=== PATIENT | female | born 1985 | race African-American/Black ===

== ENCOUNTER 2017-01-06 08:57 | Outpatient (CLI) | payer MEDICAID | END 2017-01-06 08:58 | disposition critical access hospital (66) | LOC: EMS 08:57 | PROVIDERS: ATTEND Surgery | DX: R45.851 Suicidal ideations (principal) | CPT/HCPCS: A0425; A0429 ==

== ENCOUNTER 2017-01-06 09:15 | Emergency (ER) | payer MEDICAID ==
[2017-01-06] MEDS ORDERED: OLANZapine 10 MG VIAL IM STA ×2 (09:25→17:59)
[2017-01-06] MEDS ORDERED: OLANZapine 10 MG VIAL IM ONE ×2 (09:28→18:09)
[2017-01-06] MEDS ORDERED: WATER FOR INJECTION,STERILE 10 ML ONE ×2 (09:30→18:19)
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
[2017-01-06 10:15] LABS: BASOPHILS # (AUTO) 0.1 10^3/uL (0.0-0.1); BASOPHILS % (AUTO) 1.2 %; EOSINOPHILS # (AUTO) 0.1 10^3/uL (0.0-0.7); EOSINOPHILS % (AUTO) 1.5 %; HCT - HEMATOCRIT 36.7 % (37.0-47.0); HGB - HEMOGLOBIN 11.6 g/dL (12.0-16.0); LYMPHOCYTES % (AUTO) 34.8 %; MEAN CORPUSCULAR HEMOGLOBIN 24.5 pg (27.0-31.0); MEAN CORPUSCULAR HGB CONC 31.6 g/dL (32.0-36.0); MEAN CORPUSCULAR VOLUME 77.4 fL (81.0-99.0); MEAN PLATELET VOLUME 7.3 fL (7.9-10.8); MONOCYTES # (AUTO) 0.5 10^3/uL (0.0-1.0); MONOCYTES % (AUTO) 5.6 %; NEUTROPHILS % (AUTO) 56.9 %; RED BLOOD COUNT 4.75 10^6/uL (4.20-5.40); RED CELL DISTRIBUTION WIDTH 16.8 % (12.0-15.0); UNCORRECTED WHITE BLOOD COUNT 8.7 x10^3/uL; WHITE BLOOD COUNT 8.7 x10^3/uL (4.8-10.8)
[2017-01-06 10:31] LABS: ALBUMIN/GLOBULIN RATIO 0.9 (1.0-2.2); BUN - BLOOD UREA NITROGEN 7 mg/dL (6-20); CALCIUM 9.1 mg/dL (8.5-10.3); CARBON DIOXIDE - CO2 28 mmol/L (21-32); CHLORIDE 100 mmol/L (101-111); CREATININE 0.7 mg/dL (0.4-1.0); GFR - MDRD 118 (>89); GLUCOSE 116 mg/dL (70-100); LIPASE 44 U/L (22-51); SALICYLATE < 6.0 mg/dL; SODIUM 137 mmol/L (135-145); TOTAL PROTEIN 8.9 g/dL (6.7-8.2)
[2017-01-06 11:14] LABS: ACETAMINOPHEN < 10 ug/mL (10-30)
[2017-01-06] MEDS: POTASSIUM CHLORIDE 20 MEQ TABLET PO STA ×2 (11:58→17:03)
[2017-01-06] MEDS ORDERED: POTASSIUM CHLORIDE 20 MEQ TABLET PO ONE (17:04)
[2017-01-06] MEDS ORDERED: LORazepam 2 MG/ML SYRINGE IVP STA (17:59)
[2017-01-06] MEDS ORDERED: LORazepam 2 MG/ML SYRINGE ONE (18:09)
[2017-01-06] MEDS ORDERED: LORazepam 2 MG/ML SYRINGE IM STA (18:34)
[2017-01-06 19:19] LABS: PH,URINE 5.5 PH (5.0-7.5)
[2017-01-06 19:21] LABS: UA w/ MICROSCOPIC CHARGE YES
[2017-01-06 19:27] LABS: BILIRUBIN,URINE NEGATIVE (NEGATIVE)
[2017-01-06 19:33] LABS: UR CULTURE IF IND NOT INDICATED; WBC,URINE >25 /HPF (0-5)
[2017-01-06 22:03] VITALS: BP 144/91
== END 2017-01-06 22:14 ==
LOC: EDUNIT# → ED 09:15
DX: F31.9 Bipolar disorder, unspecified (principal); T50.906A Underdosing of unspecified drugs, medicaments and biological substances, initial encounter; Z91.128 Patient's intentional underdosing of medication regimen for other reason
CPT/HCPCS: 36415; 80053; 80306; 80307; 80320; 80329; 81001; 83690; 84132; 84703; 85025; 87086; 96372; 99284; 99285; A9270; J2060; 81003

== ENCOUNTER 2017-01-30 11:46 | Outpatient (CLI) | payer MEDICAID | END 2017-01-30 11:47 | disposition critical access hospital (66) | LOC: EMS 11:46 | PROVIDERS: ATTEND Surgery | DX: R41.0 Disorientation, unspecified (principal) ==

== ENCOUNTER 2017-01-30 12:04 | Emergency (ER) | payer MEDICAID ==
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
[2017-01-30] MEDS ORDERED: OLANZapine 10 MG VIAL IM STA ×3 (12:58→22:38)
[2017-01-30] MEDS ORDERED: WATER FOR INJECTION,STERILE 10 ML ONE ×3 (13:16→22:47)
[2017-01-30] MEDS ORDERED: OLANZapine 10 MG VIAL IM ONE ×3 (13:16→22:47)
[2017-01-30 16:05] LABS: ALBUMIN/GLOBULIN RATIO 0.7 (1.0-2.2); BILIRUBIN,TOTAL 0.4 mg/dL (0.2-1.0); BUN - BLOOD UREA NITROGEN 6 mg/dL (6-20); CALCIUM 9.5 mg/dL (8.5-10.3); CARBON DIOXIDE - CO2 31 mmol/L (21-32); CHLORIDE 96 mmol/L (101-111); CREATININE 0.7 mg/dL (0.4-1.0); GFR - MDRD 118 (>89); GLUCOSE 96 mg/dL (70-100); LIPASE 45 U/L (22-51); POTASSIUM 3.2 mmol/L (3.5-5.0); SALICYLATE < 6.0 mg/dL; SODIUM 140 mmol/L (135-145); TOTAL PROTEIN 8.7 g/dL (6.7-8.2)
[2017-01-30 16:07] LABS: BASOPHILS # (AUTO) 0.1 10^3/uL (0.0-0.1); BASOPHILS % (AUTO) 0.8 %; EOSINOPHILS # (AUTO) 0.3 10^3/uL (0.0-0.7); EOSINOPHILS % (AUTO) 1.9 %; HCT - HEMATOCRIT 33.5 % (37.0-47.0); HGB - HEMOGLOBIN 10.5 g/dL (12.0-16.0); LYMPHOCYTES # (AUTO) 4.2 10^3/uL (1.5-3.5); LYMPHOCYTES % (AUTO) 31.6 %; MEAN CORPUSCULAR HEMOGLOBIN 24.5 pg (27.0-31.0); MEAN CORPUSCULAR HGB CONC 31.4 g/dL (32.0-36.0); MEAN CORPUSCULAR VOLUME 78.2 fL (81.0-99.0); MEAN PLATELET VOLUME 7.1 fL (7.9-10.8); MONOCYTES # (AUTO) 0.7 10^3/uL (0.0-1.0); MONOCYTES % (AUTO) 5.7 %; NEUTROPHILS # (AUTO) 7.9 10^3/uL (1.5-6.6); RED BLOOD COUNT 4.28 10^6/uL (4.20-5.40); RED CELL DISTRIBUTION WIDTH 18.1 % (12.0-15.0); UNCORRECTED WHITE BLOOD COUNT 13.2 x10^3/uL; WHITE BLOOD COUNT 13.2 x10^3/uL (4.8-10.8)
[2017-01-30 16:12] LABS: ACETAMINOPHEN < 10 ug/mL (10-30)
[2017-01-30] MEDS ORDERED: POTASSIUM CHLORIDE 20 MEQ TABLET PO STA (17:17)
[2017-01-30] MEDS ORDERED: POTASSIUM CHLORIDE 20 MEQ TABLET PO ONE (17:59)
[2017-01-30] MEDS ORDERED: LORazepam 2 MG/ML SYRINGE IM STA (18:20)
[2017-01-30] MEDS ORDERED: LORazepam 2 MG/ML SYRINGE ONE (18:35)
[2017-01-30] MEDS ORDERED: POTASSIUM BICARB 25 MEQ TABLET PO ONE (19:40)
[2017-01-30 19:55] LABS: BILIRUBIN,URINE NEGATIVE (NEGATIVE)
[2017-01-30 19:56] LABS: HCG UR QUAL NEGATIVE; UA CHARGE (STRIP ONLY) YES; UR CULTURE IF IND NOT INDICATED
[2017-01-30] MEDS ORDERED: POTASSIUM BICARB 25 MEQ TABLET PO STA ×2 (20:02→20:03)
[2017-01-30] MEDS ORDERED: LORazepam 0.5 MG TABLET PO STA (22:08)
[2017-01-30] MEDS ORDERED: LORazepam 0.5 MG TABLET ONE (22:33)
[2017-01-31 01:23] VITALS: BP 122/81
== END 2017-01-31 00:20 ==
LOC: EDUNIT# → ED 12:04
DX: F29 Unspecified psychosis not due to a substance or known physiological condition (principal); F31.9 Bipolar disorder, unspecified; D64.9 Anemia, unspecified; E87.6 Hypokalemia
CPT/HCPCS: 36415; 80053; 80306; 80307; 80320; 80329; 81003; 81025; 83690; 84132; 84443; 85025; 96372; 99285; A9270; J2060; 81001; 87086

== ENCOUNTER 2017-01-31 00:17 | Outpatient (CLI) | payer MEDICAID | END 2017-01-31 00:18 | disposition home or self-care (01) | LOC: EMS 00:17 | PROVIDERS: ATTEND Surgery | DX: F29 Unspecified psychosis not due to a substance or known physiological condition (principal); Z78.1 Physical restraint status | CPT/HCPCS: A0425; A0428 ==

== ENCOUNTER 2017-07-13 08:10 | Outpatient (CLI) | payer MEDICAID | END 2017-07-13 08:11 | disposition critical access hospital (66) | LOC: EMS 08:10 | PROVIDERS: ATTEND Surgery | DX: F91.9 Conduct disorder, unspecified (principal) | CPT/HCPCS: A0425; A0429 ==

== ENCOUNTER 2017-07-13 08:27 | Emergency (ER) | payer MEDICAID ==
--- NOTE | 2017-07-13 09:02 | ED Physician Documentation ---
PD HPI MHE - Stated complaint Stated Complaint: MHE - Chief complaint Chief Complaint: MHE - History obtained from History obtained from: Patient, EMS - History of Present Illness Primary symptom: Manic (She was being disruptive trying to get on the bus and uncooperative and not really making sense in her sentence structure and interactions. She is then started stripping her clothes off and walking around naked. EMS was called. She was slightly combative en route and required restraints. She had very tangential thought process and poor verbal interaction. This is consistent with prior manic episode she has had with last hospitalization January 2017.), Off meds Timing - onset: Today, Unknown (not sure how long this has been building.) Contributing factors: Off meds (reportedly from EMS). No: Substance abuse - ETOH, Substance abuse - drugs Review of Systems Unable to obtain: Confused, Other (not really answering questions directly.) Constitutional: denies: Fever Respiratory: denies: Cough GI: denies: Vomiting, Diarrhea PD PAST MEDICAL HISTORY - Past Medical History Cardiovascular: None Respiratory: None Neuro: None Endocrine/Autoimmune: None GI: None FORESTRY INSTRUCTOR: None : None HEENT: None Psych: Bipolar disorder, Other Musculoskeletal: None Derm: None - Past Surgical History Past Surgical History: No - Present Medications Home Medications: Ambulatory Orders Medication Instructions Recorded Confirmed OLANZapine [Olanzapine] 1 mg PO DAILY 08/07/14 01/06/17 - Allergies Allergies/Adverse Reactions: Allergies Allergy/AdvReac Type Severity Reaction Status Date / Time No Known Drug Allergies Allergy Verified 01/06/17 11:05 - Social History Does the pt smoke?: No Smoking Status: Never smoker Does the pt drink ETOH?: Yes Does the pt have substance abuse?: No - Immunizations Immunizations are current?: No - POLST Patient has POLST: No PD ED PE NORMAL - Vitals Vital signs reviewed: Yes - General General: No acute distress, Well developed/nourished, Other (She is able to state her name. She could not tell us the month. She thought she was at home when asked where she is. She does not seem to be really in connection with her surroundings. She has a somewhat blank stare and seems confused. 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 2-12 intact, No motor deficit, No sensory deficit, Normal speech Eye Opening: Spontaneous Motor: Obeys Commands Verbal: Confused GCS Score: 14 - Psych Psych: Normal mood Results - Vitals Vitals: Vital Signs - 24 hr 07/13/17 10:33 Temperature 36.3 C L Heart Rate 88 Respiratory 15 Rate Blood Pressure 156/101 H O2 Saturation 97 Oxygen O2 Source Room air - Labs Labs: Laboratory Tests 07/13/17 07/13/17 07/13/17 10:59 10:59 11:03 WBC 11.6 H RBC 4.70 Hgb 11.6 L Hct 37.4 MCV 79.5 L MCH 24.6 L MCHC 31.0 L RDW 17.8 H Plt Count 433 MPV 7.2 L Neut # 7.4 H Lymph # 3.5 [place] # 0.6 Eos # 0.1 Baso # 0.1 Absolute Nucleated RBC 0.00 Nucleated RBC % 0.0 Sodium 137 Potassium 4.4 Chloride 101 Carbon Dioxide 24 Anion Gap 12.0 BUN 7 Creatinine 0.7 Estimated GFR (MDRD) 118 Glucose 127 H Calcium 9.0 Total Bilirubin 0.4 AST 39 ALT 25 Alkaline Phosphatase 86 Total Protein 8.6 H Albumin 3.9 Globulin 4.7 H Albumin/Globulin Ratio 0.8 L Lipase 14 L Urine Color Urine Clarity Urine pH Ur Specific [place] Urine Protein Urine Glucose (UA) Urine Ketones Urine Occult Blood Urine Nitrite Urine Bilirubin Urine Urobilinogen Ur Leukocyte Esterase Ur Microscopic Review Urine Culture Comments Urine HCG, Qual Salicylates < 6.0 Urine Opiates Screen NEGATIVE Ur Oxycodone Screen NEGATIVE Urine Methadone Screen NEGATIVE Ur Propoxyphene Screen NEGATIVE Acetaminophen < 10 L Ur Barbiturates Screen NEGATIVE Ur Tricyclics Screen NEGATIVE Ur Phencyclidine Scrn NEGATIVE Ur Amphetamine Screen NEGATIVE U Methamphetamines Scrn NEGATIVE U Benzodiazepines Scrn NEGATIVE Urine Cocaine Screen NEGATIVE U Cannabinoids Screen NEGATIVE Ethyl Alcohol < 5.0 07/13/17 11:03 WBC RBC Hgb Hct MCV MCH MCHC RDW Plt Count MPV Neut # Lymph # [place] # Eos # Baso # Absolute Nucleated RBC Nucleated RBC % Sodium Potassium Chloride Carbon Dioxide Anion Gap BUN Creatinine Estimated GFR (MDRD) Glucose Calcium Total Bilirubin AST ALT Alkaline Phosphatase Total Protein Albumin Globulin Albumin/Globulin Ratio Lipase Urine Color YELLOW Urine Clarity CLEAR Urine pH 7.0 Ur Specific [place] 1.020 Urine Protein NEGATIVE Urine Glucose (UA) NEGATIVE Urine Ketones TRACE Urine Occult Blood NEGATIVE Urine Nitrite NEGATIVE Urine Bilirubin NEGATIVE Urine Urobilinogen 0.2 (NORMAL) Ur Leukocyte Esterase NEGATIVE Ur Microscopic Review NOT INDICATED Urine Culture Comments NOT INDICATED Urine HCG, Qual NEGATIVE Salicylates Urine Opiates Screen Ur Oxycodone Screen Urine Methadone Screen Ur Propoxyphene Screen Acetaminophen Ur Barbiturates Screen Ur Tricyclics Screen Ur Phencyclidine Scrn Ur Amphetamine Screen U Methamphetamines Scrn U Benzodiazepines Scrn Urine Cocaine Screen U Cannabinoids Screen Ethyl Alcohol PD MEDICAL DECISION MAKING - ED course Complexity details: reviewed results, re-evaluated patient (The patient was initially cooperative in that she would follow directions to stay in the room. She would not interact well in that she seemed to be staring off blankly and not answering well. When initially asked where she was she thought she was at home. After the months that she get a stat February. She was able to state her name. She her speech was clear and coherent and did not seem to be a delirium or somnolence. There is no signs of injury. This looks to be an exacerbation of her manic psychosis similar to other visits here. There is no history of drug use in the past nor currently in her U tox is negative. Her labs are normal. This appears to be psychiatric.), considered differential ( most likely exac of her bipolar with manic psychosis and reportedly off meds. Will check labs to ensure not druge related, though she has not had any history of drug use in the past and has had negative drug screens always. Will check labs for electrolytes. No fever and no report of infectious symptoms, but will check CBC and UA. Off meds so not likely toxic. She is not hving toxidrome symtpoms such as anticholinergic. ), d/w patient, d/w review consultant (UNIQUE and ADARSH)
[2017-07-13] MEDS ORDERED: OLANZapine 10 MG VIAL IM ONE (09:13)
[2017-07-13] MEDS ORDERED: OLANZapine 10 MG VIAL IM STA ×2 (10:02→12:08)
[2017-07-13] MEDS ORDERED: KETAMINE 500 MG/10 ML VIAL IM STA (10:02)
[2017-07-13 11:05] LABS: MUDS CUTOFF CONCENTRATIONS CUTOFF CONC BELOW:
[2017-07-13 11:09] LABS: BASOPHILS # (AUTO) 0.1 10^3/uL (0.0-0.1); BASOPHILS % (AUTO) 0.5 %; EOSINOPHILS # (AUTO) 0.1 10^3/uL (0.0-0.7); EOSINOPHILS % (AUTO) 0.9 %; HGB - HEMOGLOBIN 11.6 g/dL (12.0-16.0); LYMPHOCYTES # (AUTO) 3.5 10^3/uL (1.5-3.5); LYMPHOCYTES % (AUTO) 29.8 %; MEAN CORPUSCULAR HEMOGLOBIN 24.6 pg (27.0-31.0); MEAN CORPUSCULAR VOLUME 79.5 fL (81.0-99.0); MEAN PLATELET VOLUME 7.2 fL (7.9-10.8); MONOCYTES # (AUTO) 0.6 10^3/uL (0.0-1.0); MONOCYTES % (AUTO) 5.2 %; NEUTROPHILS # (AUTO) 7.4 10^3/uL (1.5-6.6); NEUTROPHILS % (AUTO) 63.6 %; PLT - PLATELET COUNT 433 10^3/uL (130-450); RED CELL DISTRIBUTION WIDTH 17.8 % (12.0-15.0); WHITE BLOOD COUNT 11.6 x10^3/uL (4.8-10.8)
[2017-07-13 11:19] LABS: BILIRUBIN,URINE NEGATIVE (NEGATIVE); GLUCOSE, URINE (UA) NEGATIVE (NEGATIVE); KETONES,URINE (UA) TRACE mg/dL (NEGATIVE); LEUKOCYTE ESTERASE, URINE NEGATIVE (NEGATIVE); NITRITE,URINE NEGATIVE (NEGATIVE); OCCULT BLOOD,URINE NEGATIVE (NEGATIVE); PROTEIN,URINE NEGATIVE (NEGATIVE); UROBILINOGEN,URINE 0.2 (NORMAL) E.U./dL (NORMAL)
[2017-07-13 11:20] LABS: CLARITY,URINE CLEAR (CLEAR)
[2017-07-13 11:21] LABS: HCG UR QUAL NEGATIVE
[2017-07-13 11:23] LABS: ALBUMIN 3.9 g/dL (3.2-5.5); ALBUMIN/GLOBULIN RATIO 0.8 (1.0-2.2); ALKALINE PHOSPHATASE 86 IU/L (42-121); ALT ALANINE AMINOTRANSFERASE 25 IU/L (10-60); AST ASPARTATE AMINOTRANSFERASE 39 IU/L (10-42); BILIRUBIN,TOTAL 0.4 mg/dL (0.2-1.0); BUN - BLOOD UREA NITROGEN 7 mg/dL (6-20); CARBON DIOXIDE - CO2 24 mmol/L (21-32); CHLORIDE 101 mmol/L (101-111); CREATININE 0.7 mg/dL (0.4-1.0); GFR - MDRD 118 (>89); GLUCOSE 127 mg/dL (70-100); LIPASE 14 U/L (22-51); SALICYLATE < 6.0 mg/dL; SODIUM 137 mmol/L (135-145); TOTAL PROTEIN 8.6 g/dL (6.7-8.2)
[2017-07-13 11:25] LABS: ACETAMINOPHEN < 10 ug/mL (10-30)
[2017-07-13 11:27] LABS: AMPHETAMINE SCREEN,URINE NEGATIVE (NEGATIVE); BENZODIAZEPINES SCREEN, URINE NEGATIVE (NEGATIVE); COCAINE SCREEN URINE NEGATIVE (NEGATIVE); METHADONE SCREEN, URINE NEGATIVE (NEGATIVE); METHAMPHETAMINES SCREEN, URINE NEGATIVE (NEGATIVE); OPIATE SCREEN, URINE NEGATIVE (NEGATIVE); OXYCODONE SCREEN, URINE NEGATIVE (NEGATIVE); PROPOXYPHENE SCREEN, URINE NEGATIVE (NEGATIVE); TRICYCLIC ANTIDEPRESSANT,URINE NEGATIVE (NEGATIVE)
[2017-07-13 13:17] VITALS: BP 124/75
[2017-07-13] MEDS ORDERED: HALOPERIDOL 5 MG/ML VIAL IM STA (16:19)
== END 2017-07-13 16:43 ==
LOC: EDUNIT# → ED 08:27
DX: F31.2 Bipolar disorder, current episode manic severe with psychotic features (principal)
CPT/HCPCS: 36415; 51701; 80053; 80306; 80307; 80320; 80329; 81001; 81003; 81025; 83690; 85025; 87086; 96372; 99284; 99285

== ENCOUNTER 2017-07-13 16:40 | Outpatient (CLI) | payer MEDICAID | END 2017-07-13 16:41 | disposition short-term general hospital (02) | LOC: EMS 16:40 | PROVIDERS: ATTEND Surgery | DX: F23 Brief psychotic disorder (principal) | CPT/HCPCS: A0425; A0426 ==

== ENCOUNTER 2017-08-27 16:43 | Outpatient (CLI) | payer MEDICAID | END 2017-08-27 16:44 | disposition critical access hospital (66) | LOC: EMS 16:43 | PROVIDERS: ATTEND Surgery | DX: R45.89 Other symptoms and signs involving emotional state (principal) | CPT/HCPCS: A0425; A0429 ==

== ENCOUNTER 2017-08-27 17:07 | Emergency (ER) | payer MEDICAID ==
[2017-08-27] MEDS ORDERED: OLANZapine 10 MG VIAL IM STA (17:33)
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
[2017-08-27] MEDS ORDERED: KETAMINE 500 MG/10 ML VIAL IM STA ×2 (18:56→20:49)
[2017-08-27 20:27] LABS: BASOPHILS # (AUTO) 0.1 10^3/uL (0.0-0.1); BASOPHILS % (AUTO) 0.7 %; EOSINOPHILS # (AUTO) 0.1 10^3/uL (0.0-0.7); EOSINOPHILS % (AUTO) 0.7 %; HGB - HEMOGLOBIN 9.7 g/dL (12.0-16.0); LYMPHOCYTES # (AUTO) 3.3 10^3/uL (1.5-3.5); LYMPHOCYTES % (AUTO) 24.2 %; MEAN CORPUSCULAR HEMOGLOBIN 24.6 pg (27.0-31.0); MEAN CORPUSCULAR HGB CONC 31.2 g/dL (32.0-36.0); MEAN CORPUSCULAR VOLUME 78.8 fL (81.0-99.0); MEAN PLATELET VOLUME 7.2 fL (7.9-10.8); MONOCYTES # (AUTO) 0.7 10^3/uL (0.0-1.0); MONOCYTES % (AUTO) 4.9 %; NEUTROPHILS # (AUTO) 9.6 10^3/uL (1.5-6.6); NEUTROPHILS % (AUTO) 69.5 %; PLT - PLATELET COUNT 443 10^3/uL (130-450); RED BLOOD COUNT 3.93 10^6/uL (4.20-5.40); RED CELL DISTRIBUTION WIDTH 17.8 % (12.0-15.0); WHITE BLOOD COUNT 13.8 x10^3/uL (4.8-10.8)
[2017-08-27 20:39] LABS: ACETAMINOPHEN < 10 ug/mL (10-30); ALBUMIN 3.9 g/dL (3.2-5.5); ALBUMIN/GLOBULIN RATIO 0.8 (1.0-2.2); ALKALINE PHOSPHATASE 78 IU/L (42-121); ALT ALANINE AMINOTRANSFERASE 17 IU/L (10-60); AST ASPARTATE AMINOTRANSFERASE 33 IU/L (10-42); BILIRUBIN,TOTAL 0.7 mg/dL (0.2-1.0); BUN - BLOOD UREA NITROGEN 8 mg/dL (6-20); CALCIUM 8.9 mg/dL (8.5-10.3); CARBON DIOXIDE - CO2 26 mmol/L (21-32); CHLORIDE 103 mmol/L (101-111); CREATININE 0.7 mg/dL (0.4-1.0); GFR - MDRD 118 (>89); GLUCOSE 91 mg/dL (70-100); LIPASE 27 U/L (22-51); SALICYLATE < 6.0 mg/dL; SODIUM 139 mmol/L (135-145); TOTAL PROTEIN 8.5 g/dL (6.7-8.2)
[2017-08-27 21:17] LABS: MUDS CUTOFF CONCENTRATIONS CUTOFF CONC BELOW:
[2017-08-27 21:21] LABS: BILIRUBIN,URINE NEGATIVE (NEGATIVE); GLUCOSE, URINE (UA) NEGATIVE (NEGATIVE); KETONES,URINE (UA) 15 mg/dL (NEGATIVE); LEUKOCYTE ESTERASE, URINE NEGATIVE (NEGATIVE); NITRITE,URINE NEGATIVE (NEGATIVE); OCCULT BLOOD,URINE TRACE-INTA (NEGATIVE); PH,URINE 6.5 PH (5.0-7.5); PROTEIN,URINE NEGATIVE (NEGATIVE); UROBILINOGEN,URINE 0.2 (NORMAL) E.U./dL (NORMAL)
[2017-08-27 21:23] LABS: CLARITY,URINE CLEAR (CLEAR)
[2017-08-27 21:32] LABS: AMPHETAMINE SCREEN,URINE NEGATIVE (NEGATIVE); BENZODIAZEPINES SCREEN, URINE NEGATIVE (NEGATIVE); COCAINE SCREEN URINE NEGATIVE (NEGATIVE); METHADONE SCREEN, URINE NEGATIVE (NEGATIVE); METHAMPHETAMINES SCREEN, URINE NEGATIVE (NEGATIVE); OPIATE SCREEN, URINE NEGATIVE (NEGATIVE); OXYCODONE SCREEN, URINE NEGATIVE (NEGATIVE); PROPOXYPHENE SCREEN, URINE NEGATIVE (NEGATIVE); TRICYCLIC ANTIDEPRESSANT,URINE NEGATIVE (NEGATIVE)
[2017-08-28 02:00] LABS: HCG UR QUAL NEGATIVE
[2017-08-28] MEDS ORDERED: HALOPERIDOL 5 MG/ML VIAL IM STA ×2 (04:02→07:33)
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
[2017-08-28] MEDS ORDERED: POTASSIUM BICARB 25 MEQ TABLET PO STA (05:02)
[2017-08-28] MEDS ORDERED: POTASSIUM CHLOR 10 MEQ/100 ML 10 MEQ/100 ML BAG IV ONE ×2 (05:15)
[2017-08-28] MEDS ORDERED: LORazepam 0.5 MG TABLET PO STA (10:19)
[2017-08-28] MEDS ORDERED: LORazepam 2 MG/ML VIAL IVP STA (10:33)
[2017-08-28] MEDS ORDERED: OLANZapine 10 MG VIAL IM STA (12:56)
[2017-08-28] MEDS ORDERED: OLANZapine 10 MG VIAL IM ONE (13:07)
[2017-08-28] MEDS ORDERED: WATER FOR INJECTION,STERILE 10 ML ONE (13:07)
[2017-08-28 13:33] VITALS: BP 126/71
--- NOTE | 2017-08-28 19:36 | ED Physician Documentation ---
ED Addendum - Addendum Addendum: At change of shift the patient's care was signed over to me pending transport to psychiatric facility in [place]. Repeat potassium came back in the normal range at 3.8. The patient's agitation required that she continued to be maintained in restraints. She was also given additional sedative medication, including Haldol 5 mg IM, and lorazepam 0.5 mg IV. At the time of transfer her blood pressure is 126/71, with a pulse of 96. 08/28/17 19:34 08/28/17 19:35 08/28/17 19:36
--- NOTE | 2017-09-17 07:47 | ED Physician Documentation ---
ED Addendum - Addendum Addendum: This addendum is to report that on August 28, 2017, the patient was transported to [facility] in [place] by S ambulance. Transfer forms were completed. 09/17/17 07:46
== END 2017-08-28 13:33 ==
LOC: EDUNIT# → ED 17:07
DX: F29 Unspecified psychosis not due to a substance or known physiological condition (principal); F31.9 Bipolar disorder, unspecified; Z78.1 Physical restraint status
CPT/HCPCS: 36415; 51701; 80053; 80306; 80307; 80320; 80329; 81003; 81025; 83690; 84132; 85025; 96365; 96366; 96372; 96375; 99284; 99285; A9270; J2060; 81001; 87086

== ENCOUNTER 2017-11-18 14:12 | Outpatient (CLI) | payer MEDICAID | END 2017-11-18 14:13 | disposition critical access hospital (66) | LOC: EMS 14:12 | PROVIDERS: ATTEND Surgery | DX: T43.592A Poisoning by other antipsychotics and neuroleptics, intentional self-harm, initial encounter (principal) | CPT/HCPCS: A0425; A0429; A0999 ==

== ENCOUNTER 2017-11-18 14:30 | Emergency (ER) | payer MEDICAID ==
--- NOTE | 2017-11-18 14:40 | ED Physician Documentation ---
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 pt states thta yes she took other meds - does not know what, says they are in storage, states yes she also drank alcohol specifically listerine, and says "it doesnt really matter" when asked if she used illicit drugs she states she fell yesterday and hurt her heart she states she has had fever cough NVD but afebrile and no coughing or vomiting upon arrival BIBA in restraints 2/2 agitation Review of Systems Unable to obtain: Other (panpositive ROS per pt - she answers yes to everything) PD PAST MEDICAL HISTORY - Past Medical History Cardiovascular: None Respiratory: None Endocrine/Autoimmune: None GI: None 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 : None HEENT: None Psych: Bipolar disorder, Other Musculoskeletal: None Derm: None - Past Surgical History Past Surgical History: No - Present Medications Home Medications: Ambulatory Orders Medication Instructions Recorded Confirmed OLANZapine [Olanzapine] 5 mg PO DAILY 08/07/14 01/06/17 - Allergies Allergies/Adverse Reactions: Allergies Allergy/AdvReac Type Severity Reaction Status Date / Time No Known Drug Allergies Allergy Verified 01/06/17 11:05 - Social History Does the pt smoke?: No Smoking Status: Never smoker Does the pt drink ETOH?: Yes Does the pt have substance abuse?: No - Immunizations Immunizations are current?: No - POLST Patient has POLST: No PD ED PE NORMAL - Vitals Vital signs reviewed: Yes - General General: Other (alert actually very cooperative and talkative ) - HEENT HEENT: PERRL - Neck Neck: Supple, no meningeal sign - Cardiac Cardiac: RRR - Respiratory Respiratory: No respiratory distress, Clear bilaterally - Abdomen Abdomen: Soft, Non tender - Derm Derm: Normal color - Neuro Neuro: Other (alert oriented cooperative, moves all ext) Results - Vitals Vitals: Vital Signs - 24 hr 11/18/17 11/18/17 14:33 17:55 Temperature 35.9 C L Heart Rate 94 88 Respiratory 20 20 Rate Blood Pressure 154/87 H O2 Saturation 100 99 Oxygen O2 Source Room air - EKG (time done) 1456 Other comments: Other comments (sig motion agitation artifact but able to determine rate approx 120-130, sinus tach (P wave visible V2) narrow QRS, no prolonged QT) - Labs Labs: Laboratory Tests 11/18/17 11/18/17 11/18/17 16:55 16:55 16:55 WBC 13.1 H RBC 4.63 Hgb 11.1 L Hct 36.1 L MCV 77.9 L MCH 24.0 L MCHC 30.8 L RDW 17.9 H Plt Count 523 H MPV 6.6 L Neut # (Auto) 8.5 H Lymph # (Auto) 3.8 H [place] # (Auto) 0.7 Eos # (Auto) 0.1 Baso # (Auto) 0.1 Absolute Nucleated RBC 0.00 Nucleated RBC % 0.0 Sodium 139 Potassium 2.8 L Chloride 99 L Carbon Dioxide 30 Anion Gap 10.0 BUN 8 Creatinine 0.8 Estimated GFR (MDRD) 101 Glucose 103 H Calcium 9.0 HCG, Quant < 0.60 Urine Color Urine Clarity Urine pH Ur Specific [place] Urine Protein Urine Glucose (UA) Urine Ketones Urine Occult Blood Urine Nitrite Urine Bilirubin Urine Urobilinogen Ur Leukocyte Esterase Urine RBC Urine WBC Ur Squamous Epith Cells Urine Bacteria Urine Mucus Ur Microscopic Review Urine Culture Comments Salicylates < 6.0 Urine Opiates Screen Ur Oxycodone Screen Urine Methadone Screen Ur Propoxyphene Screen Acetaminophen < 10 L Ur Barbiturates Screen Ur Tricyclics Screen Ur Phencyclidine Scrn Ur Amphetamine Screen U Methamphetamines Scrn U Benzodiazepines Scrn Urine Cocaine Screen U Cannabinoids Screen Ethyl Alcohol < 5.0 11/18/17 11/18/17 16:55 16:59 WBC RBC Hgb Hct MCV MCH MCHC RDW Plt Count MPV Neut # (Auto) Lymph # (Auto) [place] # (Auto) Eos # (Auto) Baso # (Auto) Absolute Nucleated RBC Nucleated RBC % Sodium Potassium Chloride Carbon Dioxide Anion Gap BUN Creatinine Estimated GFR (MDRD) Glucose Calcium HCG, Quant Urine Color YELLOW Urine Clarity HAZY Urine pH 6.0 Ur Specific [place] >=1.030 H Urine Protein 30 H Urine Glucose (UA) NEGATIVE Urine Ketones >=80 H Urine Occult Blood MODERATE H Urine Nitrite NEGATIVE Urine Bilirubin NEGATIVE Urine Urobilinogen 0.2 (NORMAL) Ur Leukocyte Esterase NEGATIVE Urine RBC 11-25 H Urine WBC 6-10 H Ur Squamous Epith Cells FEW Squamous Urine Bacteria Few Urine Mucus Marked Strands Ur Microscopic Review INDICATED Urine Culture Comments INDICATED Salicylates Urine Opiates Screen NEGATIVE Ur Oxycodone Screen NEGATIVE Urine Methadone Screen NEGATIVE Ur Propoxyphene Screen NEGATIVE Acetaminophen Ur Barbiturates Screen NEGATIVE Ur Tricyclics Screen NEGATIVE Ur Phencyclidine Scrn NEGATIVE Ur Amphetamine Screen NEGATIVE U Methamphetamines Scrn NEGATIVE U Benzodiazepines Scrn NEGATIVE Urine Cocaine Screen NEGATIVE U Cannabinoids Screen NEGATIVE Ethyl Alcohol PD MEDICAL DECISION MAKING - ED course ED course: called poison control : possible adverse rxn include, prolonged QT, extrapyramidal effects, tachycardia, nystagmus, mydriasis, somnolence, ataxia, seizures, delerium, resp and PIGSKIN TRIMMER depression, hypotension recommend symptomatic tx as below: IVF for hypotension monitor airway if seizures benzos benztropine for dystonia EKG to eval for QT half life is 27 hr unlikely to develop toxicity if not showing above sx will need to be observed until asymptomatic (which will be difficult to determine with this pt who often exhibits AMS and agitation anyway) pt HR came down she is similar to all her prior visits - if anything a bit calmer than her usual she is not showwing signs of toxicity I looked at the bottle and it was dated July 2017 - so not completely sure she actually took a full 30 pills her anemia is not new her K was repleted I don't think she has a UTI - on her period, only few bacteria, neg leuk est and nitrates, is dehydrated and offered PO fluids tox EtOH and ASA APAP neg feel pt medically cleared she continued to be uncooperative and appears psychotic - talking about being in the [employer] room and singing Amazing Shraddha she is resisting our efforts to help her she is not able to cooperate or participate in medical decision making she is on a police invol hold no not appropriate for SW to voluntarily place called [facility] at 1800 and they will dispatch DCR Sabrina turned over to next shift pending DCR evaluation and placement - Sepsis Event Vital Signs: Vital Signs - 24 hr 11/18/17 11/18/17 14:33 17:55 Temperature 35.9 C L Heart Rate 94 88 Respiratory 20 20 Rate Blood Pressure 154/87 H O2 Saturation 100 99 Oxygen O2 Source Room air Departure - Departure Clinical Impression: Overdose Qualifiers: Encounter type: initial encounter Injury intent: intentional self-harm Qualified Code(s): T50.902A - Poisoning by unspecified drugs, medicaments and biological substances, intentional self-harm, initial encounter Psychosis Qualifiers: Psychosis type: unspecified psychosis type Qualified Code(s): F29 - Unspecified psychosis not due to a substance or known physiological condition
[2017-11-18 17:02] LABS: MUDS CUTOFF CONCENTRATIONS CUTOFF CONC BELOW:
[2017-11-18 17:03] LABS: BASOPHILS # (AUTO) 0.1 10^3/uL (0.0-0.1); BASOPHILS % (AUTO) 0.6 %; EOSINOPHILS # (AUTO) 0.1 10^3/uL (0.0-0.7); EOSINOPHILS % (AUTO) 0.8 %; HGB - HEMOGLOBIN 11.1 g/dL (12.0-16.0); LYMPHOCYTES # (AUTO) 3.8 10^3/uL (1.5-3.5); MEAN CORPUSCULAR HGB CONC 30.8 g/dL (32.0-36.0); MEAN CORPUSCULAR VOLUME 77.9 fL (81.0-99.0); MEAN PLATELET VOLUME 6.6 fL (7.9-10.8); MONOCYTES # (AUTO) 0.7 10^3/uL (0.0-1.0); MONOCYTES % (AUTO) 5.2 %; NEUTROPHILS # (AUTO) 8.5 10^3/uL (1.5-6.6); NEUTROPHILS % (AUTO) 64.4 %; PLT - PLATELET COUNT 523 10^3/uL (130-450); RED BLOOD COUNT 4.63 10^6/uL (4.20-5.40); RED CELL DISTRIBUTION WIDTH 17.9 % (12.0-15.0); WHITE BLOOD COUNT 13.1 x10^3/uL (4.8-10.8)
[2017-11-18 17:16] LABS: AMPHETAMINE SCREEN,URINE NEGATIVE (NEGATIVE); BENZODIAZEPINES SCREEN, URINE NEGATIVE (NEGATIVE); COCAINE SCREEN URINE NEGATIVE (NEGATIVE); METHADONE SCREEN, URINE NEGATIVE (NEGATIVE); METHAMPHETAMINES SCREEN, URINE NEGATIVE (NEGATIVE); OPIATE SCREEN, URINE NEGATIVE (NEGATIVE); OXYCODONE SCREEN, URINE NEGATIVE (NEGATIVE); PROPOXYPHENE SCREEN, URINE NEGATIVE (NEGATIVE); TRICYCLIC ANTIDEPRESSANT,URINE NEGATIVE (NEGATIVE)
[2017-11-18 17:18] LABS: BUN - BLOOD UREA NITROGEN 8 mg/dL (6-20); CARBON DIOXIDE - CO2 30 mmol/L (21-32); CHLORIDE 99 mmol/L (101-111); CREATININE 0.8 mg/dL (0.4-1.0); GFR - MDRD 101 (>89); GLUCOSE 103 mg/dL (70-100); SALICYLATE < 6.0 mg/dL; SODIUM 139 mmol/L (135-145)
[2017-11-18 17:32] LABS: GLUCOSE, URINE (UA) NEGATIVE (NEGATIVE); KETONES,URINE (UA) >=80 mg/dL (NEGATIVE); LEUKOCYTE ESTERASE, URINE NEGATIVE (NEGATIVE); NITRITE,URINE NEGATIVE (NEGATIVE); OCCULT BLOOD,URINE MODERATE (NEGATIVE); PROTEIN,URINE 30 mg/dL (NEGATIVE); UROBILINOGEN,URINE 0.2 (NORMAL) E.U./dL (NORMAL)
[2017-11-18 17:36] LABS: ACETAMINOPHEN < 10 ug/mL (10-30)
[2017-11-18 17:37] LABS: BILIRUBIN,URINE NEGATIVE (NEGATIVE); CLARITY,URINE HAZY (CLEAR); ICTOTEST,URINE NEGATIVE
[2017-11-18 17:49] LABS: BACTERIA,URINE Few /HPF (None Seen); MUCUS,URINE Marked Strands; SQUAMOUS EPITHELIAL CELL,UR FEW Squamous (<= Few)
[2017-11-18] MEDS ORDERED: POTASSIUM CHLORIDE 20 MEQ TABLET PO STA (17:54)
[2017-11-18] MEDS ORDERED: LORazepam 2 MG/ML VIAL IM STA (19:39)
[2017-11-18] MEDS ORDERED: HALOPERIDOL 5 MG/ML VIAL IM STA (19:39)
[2017-11-18] MEDS ORDERED: OLANZapine ODT 5 MG TABLET TL STA (22:31)
[2017-11-18] MEDS ORDERED: LORazepam 0.5 MG TABLET PO STA (22:31)
--- NOTE | 2017-11-18 22:33 | ED Physician Documentation ---
ED Addendum - Addendum Addendum: 11/18/17 22:33 Signed out to me by Dr. Billings, she was obviously exhibiting psychosis in the department here was medicated a few times. Seen by the [facility] and detained to [facility] under the care of Dr. Siegel, cobras were completed.
[2017-11-18 23:14] VITALS: BP 127/86
== END 2017-11-18 23:26 ==
LOC: EDUNIT# → ED 14:30
DX: T50.902A Poisoning by unspecified drugs, medicaments and biological substances, intentional self-harm, initial encounter (principal); F29 Unspecified psychosis not due to a substance or known physiological condition; R00.0 Tachycardia, unspecified; D64.9 Anemia, unspecified
CPT/HCPCS: 36415; 80048; 80306; 80307; 80320; 80329; 81001; 84702; 85025; 87086; 93005; 96372; 99285; A9270; J2060; 81003; 99284

== ENCOUNTER 2017-11-18 23:27 | Outpatient (CLI) | payer MEDICAID | END 2017-11-18 23:28 | LOC: EMS 23:27 | PROVIDERS: ATTEND Surgery | DX: T43.592A Poisoning by other antipsychotics and neuroleptics, intentional self-harm, initial encounter (principal) | CPT/HCPCS: A0425; A0428; A0999 ==

== ENCOUNTER 2017-12-28 21:14 | Outpatient (CLI) | payer MEDICAID | END 2017-12-28 21:15 | disposition critical access hospital (66) | LOC: EMS 21:14 | PROVIDERS: ATTEND Surgery | DX: F41.9 Anxiety disorder, unspecified (principal) | CPT/HCPCS: A0425; A0429 ==

== ENCOUNTER 2017-12-28 21:37 | Emergency (ER) | payer MEDICAID ==
[2017-12-28] MEDS ORDERED: LORazepam 0.5 MG TABLET PO STA (22:41)
--- NOTE | 2017-12-28 22:42 | ED Physician Documentation ---
History of Present Illness - Stated complaint Stated Complaint: ANXIETY - Chief complaint Chief Complaint: MHE - History obtained from History obtained from: Patient - Additonal information Additional information: 32-year-old female with a history of mental health issues presents the emergency department with complaints of feeling anxious this evening. The patient took her normal Zyprexa and is feeling better but still slightly anxious. The patient denies suicidal or homicidal ideations. The patient's requesting a dose of medication to help with her anxiety. The patient denies any acute medical complaints. Symptoms are described as mild. No specific triggering factors Review of Systems Constitutional: denies: Fever, Chills Eyes: denies: Discharge Ears: denies: Ear pain Nose: denies: Congestion Cardiac: denies: Chest pain / pressure GI: denies: Abdominal Pain Psychiatric: reports: Anxiety. denies: Suicidal, Homicidal PD PAST MEDICAL HISTORY - Past Medical History Cardiovascular: None Respiratory: None Endocrine/Autoimmune: None GI: None DIETICIAN: None : None HEENT: None Psych: Bipolar disorder, Other Musculoskeletal: None Derm: None - Past Surgical History Past Surgical History: No - Present Medications Home Medications: Ambulatory Orders Medication Instructions Recorded Confirmed OLANZapine [Olanzapine] 5 mg PO DAILY 08/07/14 01/06/17 - Allergies Allergies/Adverse Reactions: Allergies Allergy/AdvReac Type Severity Reaction Status Date / Time No Known Drug Allergies Allergy Verified 12/28/17 21:44 - Social History Does the pt smoke?: No Smoking Status: Never smoker Does the pt drink ETOH?: Yes Does the pt have substance abuse?: No - Immunizations Immunizations are current?: No - POLST Patient has POLST: No PD ED PE NORMAL - General General: Alert and oriented X 3, No acute distress - HEENT HEENT: Atraumatic, PERRL, EOMI - Neck Neck: Supple, no meningeal sign - Cardiac Cardiac: RRR - Respiratory Respiratory: No respiratory distress, Clear bilaterally - Derm Derm: Normal color - Neuro Neuro: Alert and oriented X 3, Normal speech PD ED PE EXPANDED - Psych Psych: Withdrawn, Anxious. No: Suicidal, Homicidal, Agitated, Combative Results - Vitals Vitals: Vital Signs - 24 hr 12/28/17 21:40 Temperature 36.6 C Heart Rate 97 Respiratory 14 Rate Blood Pressure 130/98 H O2 Saturation 97 Oxygen O2 Source Room air PD MEDICAL DECISION MAKING - ED course ED course: The patient has no acute medical complaint and is denying suicidal homicidal ideations. The patient will be given 1 dose of Ativan in the emergency department to help improve her anxiety. The patient is scheduled to follow-up with her advocate tomorrow. I advised following up with primary care. Presently the patient appears appropriate for discharge and on patient management. I discussed warning signs and recommended returning to the emergency department immediately for any worsening or any concerns. - Sepsis Event Vital Signs: Vital Signs - 24 hr 12/28/17 21:40 Temperature 36.6 C Heart Rate 97 Respiratory 14 Rate Blood Pressure 130/98 H O2 Saturation 97 Oxygen O2 Source Room air Departure - Departure Disposition: Home, Self Care Clinical Impression: Anxiety Condition: Good Instructions: ED Anxiety Reaction Ch Follow-Up: Tadeo Rainey MD [Primary Care Provider] - Within 3 Days Comments: Please return to the ER for worsening symptoms or any concerns
[2017-12-28 23:15] VITALS: BP 140/74
== END 2017-12-28 23:16 | disposition home or self-care (01) ==
LOC: EDUNIT# → ED 21:37
DX: F41.9 Anxiety disorder, unspecified (principal); Z59.0 Homelessness
CPT/HCPCS: 99283; A9270

== ENCOUNTER 2017-12-30 15:35 | Emergency (ER) | payer MEDICAID ==
--- NOTE | 2017-12-30 15:43 | ED Physician Documentation ---
PD HPI MHE - Stated complaint Stated Complaint: EVAL - Chief complaint Chief Complaint: MHE - History obtained from History obtained from: Patient - History of Present Illness Primary symptom: Psychosis (Brought in [facility] ordered mental health evaluation. She was found wandering the streets yesterday without pants on. She was released on personal recognizance but pending the mental health evaluation. Patient is nonsensical. When asked her how I can help her all she says is [employer]. She makes it clear she needs to get [employer] to get diapers. 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 : None HEENT: None Psych: Bipolar disorder, Other Musculoskeletal: None Derm: None - Past Surgical History Past Surgical History: No - Present Medications Home Medications: Ambulatory Orders Medication Instructions Recorded Confirmed OLANZapine [Olanzapine] 5 mg PO DAILY 08/07/14 01/06/17 - Allergies Allergies/Adverse Reactions: Allergies Allergy/AdvReac Type Severity Reaction Status Date / Time No Known Drug Allergies Allergy Verified 12/30/17 15:38 - Social History Does the pt smoke?: No Smoking Status: Never smoker Does the pt drink ETOH?: Yes Does the pt have substance abuse?: No - Immunizations Immunizations are current?: No - POLST Patient has POLST: No PD ED PE NORMAL - Vitals Vital signs reviewed: Yes - General General: Other (She is alert and cooperative but basically a useless historian. She just babbles on about [employer] diapers. She cannot verbalize that she is in the hospital or why.) - HEENT HEENT: PERRL, EOMI - Neck Neck: Supple, no meningeal sign, No bony TTP - Cardiac Cardiac: RRR, No murmur - Respiratory Respiratory: No respiratory distress, Clear bilaterally - Abdomen Abdomen: Normal bowel sounds, Soft, Non tender - Back Back: No CVA TTP, No spinal TTP - Derm Derm: Normal color, Warm and dry - Extremities Extremities: No edema, No calf tenderness / cord - Neuro Eye Opening: Spontaneous Motor: Obeys Commands Verbal: Confused GCS Score: 14 - Psych Psych: Normal mood, Normal affect Results - Vitals Vitals: Vital Signs - 24 hr 12/30/17 12/30/17 15:36 19:17 Temperature 36.1 C L 36.6 C Heart Rate 90 90 Respiratory 20 14 Rate Blood Pressure 145/103 H 146/87 H O2 Saturation 97 100 Oxygen O2 Source Room air - Labs Labs: Laboratory Tests 12/30/17 12/30/17 12/30/17 15:45 15:45 15:57 WBC 10.4 RBC 4.48 Hgb 10.8 L Hct 34.0 L MCV 75.9 L MCH 24.2 L MCHC 31.9 L RDW 18.2 H Plt Count 553 H MPV 6.6 L Neut # (Auto) 6.7 H Lymph # (Auto) 2.9 [place] # (Auto) 0.6 Eos # (Auto) 0.1 Baso # (Auto) 0.1 Absolute Nucleated RBC 0.00 Nucleated RBC % 0.0 Sodium Potassium Chloride Carbon Dioxide Anion Gap BUN Creatinine Estimated GFR (MDRD) Glucose Calcium Total Bilirubin AST ALT Alkaline Phosphatase Total Protein Albumin Globulin Albumin/Globulin Ratio Lipase TSH Urine Color YELLOW Urine Clarity CLEAR Urine pH 6.0 Ur Specific [place] <=1.005 <=1.005 Urine Protein NEGATIVE Urine Glucose (UA) NEGATIVE Urine Ketones 15 H Urine Occult Blood NEGATIVE Urine Nitrite NEGATIVE Urine Bilirubin NEGATIVE Urine Urobilinogen 0.2 (NORMAL) Ur Leukocyte Esterase NEGATIVE Ur Microscopic Review NOT INDICATED Urine Culture Comments NOT INDICATED Urine HCG, Qual NEGATIVE Salicylates Urine Opiates Screen NEGATIVE Ur Oxycodone Screen NEGATIVE Urine Methadone Screen NEGATIVE Ur Propoxyphene Screen NEGATIVE Acetaminophen Ur Barbiturates Screen NEGATIVE Ur Tricyclics Screen NEGATIVE Ur Phencyclidine Scrn NEGATIVE Ur Amphetamine Screen NEGATIVE U Methamphetamines Scrn NEGATIVE U Benzodiazepines Scrn NEGATIVE Urine Cocaine Screen NEGATIVE U Cannabinoids Screen NEGATIVE Ethyl Alcohol 12/30/17 12/30/17 15:57 15:57 WBC RBC Hgb Hct MCV MCH MCHC RDW Plt Count MPV Neut # (Auto) Lymph # (Auto) [place] # (Auto) Eos # (Auto) Baso # (Auto) Absolute Nucleated RBC Nucleated RBC % Sodium 137 Potassium 3.3 L Chloride 98 L Carbon Dioxide 27 Anion Gap 12.0 BUN 5 L Creatinine 0.6 Estimated GFR (MDRD) 140 Glucose 90 Calcium 9.0 Total Bilirubin 0.8 AST 29 ALT 20 Alkaline Phosphatase 88 Total Protein 8.8 H Albumin 3.8 Globulin 5.0 H Albumin/Globulin Ratio 0.8 L Lipase 30 TSH 3.00 Urine Color Urine Clarity Urine pH Ur Specific [place] Urine Protein Urine Glucose (UA) Urine Ketones Urine Occult Blood Urine Nitrite Urine Bilirubin Urine Urobilinogen Ur Leukocyte Esterase Ur Microscopic Review Urine Culture Comments Urine HCG, Qual Salicylates < 6.0 Urine Opiates Screen Ur Oxycodone Screen Urine Methadone Screen Ur Propoxyphene Screen Acetaminophen < 10 L Ur Barbiturates Screen Ur Tricyclics Screen Ur Phencyclidine Scrn Ur Amphetamine Screen U Methamphetamines Scrn U Benzodiazepines Scrn Urine Cocaine Screen U Cannabinoids Screen Ethyl Alcohol < 5.0 PD MEDICAL DECISION MAKING - ED course ED course: 32-year-old woman with history of psychosis presents with exacerbation of same. She has broken a least restrictive order and was evaluated here by the [facility]. She was deemed fit for Involuntary treatment, however no beds were available. Per judges orders per my understanding she is going [facility] pending placement in a psychiatric facility. She is medically clear for psychiatric evaluation. - Sepsis Event Vital Signs: Vital Signs - 24 hr 12/30/17 12/30/17 15:36 19:17 Temperature 36.1 C L 36.6 C Heart Rate 90 90 Respiratory 20 14 Rate Blood Pressure 145/103 H 146/87 H O2 Saturation 97 100 Oxygen O2 Source Room air Departure - Departure Disposition: 01 Home, Self Care Clinical Impression: Paranoia (psychosis) Condition: Stable Record reviewed to determine appropriate education?: Yes Discharge Date/Time: 12/30/17 19:20
[2017-12-30 16:01] LABS: MUDS CUTOFF CONCENTRATIONS CUTOFF CONC BELOW:
[2017-12-30 16:01] LABS: BASOPHILS # (AUTO) 0.1 10^3/uL (0.0-0.1); BASOPHILS % (AUTO) 0.9 %; EOSINOPHILS # (AUTO) 0.1 10^3/uL (0.0-0.7); EOSINOPHILS % (AUTO) 1.4 %; HGB - HEMOGLOBIN 10.8 g/dL (12.0-16.0); LYMPHOCYTES # (AUTO) 2.9 10^3/uL (1.5-3.5); LYMPHOCYTES % (AUTO) 27.4 %; MEAN CORPUSCULAR HEMOGLOBIN 24.2 pg (27.0-31.0); MEAN CORPUSCULAR HGB CONC 31.9 g/dL (32.0-36.0); MEAN CORPUSCULAR VOLUME 75.9 fL (81.0-99.0); MEAN PLATELET VOLUME 6.6 fL (7.9-10.8); MONOCYTES # (AUTO) 0.6 10^3/uL (0.0-1.0); MONOCYTES % (AUTO) 5.8 %; NEUTROPHILS # (AUTO) 6.7 10^3/uL (1.5-6.6); NEUTROPHILS % (AUTO) 64.5 %; PLT - PLATELET COUNT 553 10^3/uL (130-450); RED BLOOD COUNT 4.48 10^6/uL (4.20-5.40); RED CELL DISTRIBUTION WIDTH 18.2 % (12.0-15.0); WHITE BLOOD COUNT 10.4 x10^3/uL (4.8-10.8)
[2017-12-30 16:07] LABS: BILIRUBIN,URINE NEGATIVE (NEGATIVE); GLUCOSE, URINE (UA) NEGATIVE (NEGATIVE); KETONES,URINE (UA) 15 mg/dL (NEGATIVE); LEUKOCYTE ESTERASE, URINE NEGATIVE (NEGATIVE); NITRITE,URINE NEGATIVE (NEGATIVE); OCCULT BLOOD,URINE NEGATIVE (NEGATIVE); PROTEIN,URINE NEGATIVE (NEGATIVE); UROBILINOGEN,URINE 0.2 (NORMAL) E.U./dL (NORMAL)
[2017-12-30 16:11] LABS: CLARITY,URINE CLEAR (CLEAR)
[2017-12-30 16:12] LABS: HCG UR QUAL NEGATIVE
[2017-12-30 16:17] LABS: ALBUMIN 3.8 g/dL (3.2-5.5); ALBUMIN/GLOBULIN RATIO 0.8 (1.0-2.2); ALKALINE PHOSPHATASE 88 IU/L (42-121); ALT ALANINE AMINOTRANSFERASE 20 IU/L (10-60); AST ASPARTATE AMINOTRANSFERASE 29 IU/L (10-42); BILIRUBIN,TOTAL 0.8 mg/dL (0.2-1.0); BUN - BLOOD UREA NITROGEN 5 mg/dL (6-20); CARBON DIOXIDE - CO2 27 mmol/L (21-32); CHLORIDE 98 mmol/L (101-111); CREATININE 0.6 mg/dL (0.4-1.0); GFR - MDRD 140 (>89); GLUCOSE 90 mg/dL (70-100); LIPASE 30 U/L (22-51); SALICYLATE < 6.0 mg/dL; SODIUM 137 mmol/L (135-145); TOTAL PROTEIN 8.8 g/dL (6.7-8.2)
[2017-12-30 16:18] LABS: ACETAMINOPHEN < 10 ug/mL (10-30)
[2017-12-30 16:21] LABS: AMPHETAMINE SCREEN,URINE NEGATIVE (NEGATIVE); BENZODIAZEPINES SCREEN, URINE NEGATIVE (NEGATIVE); COCAINE SCREEN URINE NEGATIVE (NEGATIVE); METHADONE SCREEN, URINE NEGATIVE (NEGATIVE); METHAMPHETAMINES SCREEN, URINE NEGATIVE (NEGATIVE); OPIATE SCREEN, URINE NEGATIVE (NEGATIVE); OXYCODONE SCREEN, URINE NEGATIVE (NEGATIVE); PROPOXYPHENE SCREEN, URINE NEGATIVE (NEGATIVE); TRICYCLIC ANTIDEPRESSANT,URINE NEGATIVE (NEGATIVE)
[2017-12-30 19:18] VITALS: BP 146/87
== END 2017-12-30 19:20 | disposition home or self-care (01) ==
LOC: ED 15:35
DX: F22 Delusional disorders (principal); F23 Brief psychotic disorder
CPT/HCPCS: 36415; 80053; 80306; 80307; 80320; 80329; 81001; 81003; 81025; 83690; 84443; 85025; 87086; 99283; 99284

== ENCOUNTER 2018-02-04 07:31 | Outpatient (CLI) | payer MEDICAID | END 2018-02-04 07:32 | disposition critical access hospital (66) | LOC: EMS 07:31 | PROVIDERS: ATTEND Surgery | DX: R19.7 Diarrhea, unspecified (principal); R11.10 Vomiting, unspecified; R10.9 Unspecified abdominal pain | CPT/HCPCS: A0425; A0427; A0999 ==

== ENCOUNTER 2018-02-04 07:49 | Emergency (ER) | payer MEDICAID ==
[2018-02-04] MEDS ORDERED: ONDANSETRON 4 MG/2 ML VIAL IVP STA (07:54)
[2018-02-04] MEDS ORDERED: SODIUM CHLORIDE 0.9% 1,000 ML IV ONE (07:54)
[2018-02-04] MEDS ORDERED: KETOROLAC 60 MG/2 ML VIAL IVP STA (07:54)
--- NOTE | 2018-02-04 07:58 | ED Physician Documentation ---
History of Present Illness - Stated complaint Stated Complaint: sick - Chief complaint Chief Complaint: Abd Pain - Additonal information Additional information: hx from pt 32 f ate a bad taco salad and now has NVD and abd cramps no blood denies preg no recent travel or sick contacts no prior surgery Review of Systems Constitutional: denies: Fever Cardiac: denies: Chest pain / pressure Respiratory: denies: Dyspnea, Cough GI: reports: Abdominal Pain, Nausea, Vomiting, Diarrhea : denies: Now EGA Neurologic: denies: Generalized weakness Endocrine: denies: Easy bruising / bleeding Immunocompromised: denies: Immunocompromised PD PAST MEDICAL HISTORY - Past Medical History Cardiovascular: None Respiratory: None Endocrine/Autoimmune: None GI: None [employer]: None : None HEENT: None Psych: Bipolar disorder, Other Musculoskeletal: None Derm: None - Past Surgical History Past Surgical History: No - Present Medications Home Medications: Ambulatory Orders Medication Instructions Recorded Confirmed OLANZapine [Olanzapine] 5 mg PO DAILY 08/07/14 01/06/17 Azithromycin [Zithromax] 500 mg PO DAILY #6 tablet 02/04/18 Loperamide [Imodium] 2 mg PO ONCE PRN #10 capsule 02/04/18 Promethazine [Phenergan] 25 mg PO Q6H PRN #10 tablet 02/04/18 - Allergies Allergies/Adverse Reactions: Allergies Allergy/AdvReac Type Severity Reaction Status Date / Time No Known Drug Allergies Allergy Verified 02/04/18 07:54 - Social History Does the pt smoke?: No Smoking Status: Never smoker Does the pt drink ETOH?: Yes Does the pt have substance abuse?: No - Immunizations Immunizations are current?: No - POLST Patient has POLST: No PD ED PE NORMAL - Vitals Vital signs reviewed: Yes - General General: Alert and oriented X 3 - Neck Neck: Supple, no meningeal sign - Cardiac Cardiac: RRR - Respiratory Respiratory: No respiratory distress, Clear bilaterally - Abdomen Abdomen: Soft, Non tender - Derm Derm: Normal color - Neuro Neuro: Alert and oriented X 3 Results - Vitals Vitals: Vital Signs - 24 hr 02/04/18 02/04/18 07:50 09:49 Temperature 37.1 C Heart Rate 100 79 Respiratory 18 20 Rate Blood Pressure 135/96 H 108/54 L O2 Saturation 98 98 Oxygen O2 Source Room air - Labs Labs: Microbiology 02/04/18 08:00 Campylobacter Antigen Assay - Final Stool Laboratory Tests 02/04/18 02/04/18 08:17 08:17 WBC 10.8 RBC 4.38 Hgb 11.2 L Hct 34.6 L MCV 79.0 L MCH 25.6 L MCHC 32.3 RDW 20.2 H Plt Count 321 MPV 7.5 L Neut # (Auto) 8.1 H Lymph # (Auto) 1.7 Allen # (Auto) 0.9 Eos # (Auto) 0.1 Baso # (Auto) 0.0 Absolute Nucleated RBC 0.00 Nucleated RBC % 0.0 Manual Slide Review Indicated RBC Morph Micro Appear 3+ ANISOCYTOSIS Sodium 141 Potassium 3.2 L Chloride 107 Carbon Dioxide 25 Anion Gap 9.0 BUN 6 Creatinine 0.6 Estimated GFR (MDRD) 140 Glucose 111 H Calcium 8.1 L Total Bilirubin 0.4 AST 34 ALT 22 Alkaline Phosphatase 57 Total Protein 7.3 Albumin 3.3 Globulin 4.0 Albumin/Globulin Ratio 0.8 L Lipase 34 PD MEDICAL DECISION MAKING - ED course ED course: addendum 1330 lab called pt + for campylobacter rec tx is zithromax 500 TID this could interact with or olanzapine and the zofran i prescribed but the only other option is cipro which would also contribute to prolonged QT and is black box as well so will rx zmax pt really really needs her olanazapine - she develops serious hospital admit severity psychosis without it so will rx zmax 500 qd X 3 d and advise to dc zofran and rx phenergan instead printed new rx and dc instructions for pt as chart was not yet finished anyway I called the number and got no answer - left a message gave charge nurse Ivis the update dc paperwork and rx and instructions and reminder to stop zofran and req ER staff continue efforts to reach pt Departure - Departure Disposition: 01 Home, Self Care Clinical Impression: Food poisoning Qualifiers: Encounter type: initial encounter Injury intent: accidental or unintentional Qualified Code(s): T62.91XA - Toxic effect of unspecified noxious substance eaten as food, accidental (unintentional), initial encounter Condition: Good Instructions: Campylobacter Infec, ED Food Poison Or Gastroenteritis Prescriptions: Azithromycin [Zithromax] 500 mg PO DAILY #6 tablet Loperamide [Imodium] 2 mg PO ONCE PRN #10 capsule PRN Reason: Diarrhea Promethazine [Phenergan] 25 mg PO Q6H PRN #10 tablet PRN Reason: vomiting Comments: The ER staff will call you if the culture is positive and you need antibiotics In the mean time I have prescribed medications to ease the vomiting and diarrhea Rest. Drink plenty of fluids Follow up with your PMD Return if worse Discharge Date/Time: 02/04/18 10:16
[2018-02-04] MEDS ORDERED: LOPERAMIDE 2 MG CAPSULE PO STA (08:08)
[2018-02-04 08:34] LABS: ALBUMIN 3.3 g/dL (3.2-5.5); ALBUMIN/GLOBULIN RATIO 0.8 (1.0-2.2); BASOPHILS % (AUTO) 0.2 %; BILIRUBIN,TOTAL 0.4 mg/dL (0.2-1.0); CALCIUM 8.1 mg/dL (8.5-10.3); CREATININE 0.6 mg/dL (0.4-1.0); EOSINOPHILS # (AUTO) 0.1 10^3/uL (0.0-0.7); EOSINOPHILS % (AUTO) 1.1 %; HGB - HEMOGLOBIN 11.2 g/dL (12.0-16.0); LYMPHOCYTES # (AUTO) 1.7 10^3/uL (1.5-3.5); LYMPHOCYTES % (AUTO) 15.4 %; MEAN CORPUSCULAR HEMOGLOBIN 25.6 pg (27.0-31.0); MEAN CORPUSCULAR HGB CONC 32.3 g/dL (32.0-36.0); MEAN PLATELET VOLUME 7.5 fL (7.9-10.8); MONOCYTES # (AUTO) 0.9 10^3/uL (0.0-1.0); MONOCYTES % (AUTO) 8.6 %; NEUTROPHILS # (AUTO) 8.1 10^3/uL (1.5-6.6); NEUTROPHILS % (AUTO) 74.7 %; PLT - PLATELET COUNT 321 10^3/uL (130-450); RED BLOOD COUNT 4.38 10^6/uL (4.20-5.40); RED CELL DISTRIBUTION WIDTH 20.2 % (12.0-15.0); TOTAL PROTEIN 7.3 g/dL (6.7-8.2); WHITE BLOOD COUNT 10.8 x10^3/uL (4.8-10.8)
[2018-02-04] MEDS ORDERED: POTASSIUM CHLORIDE 20 MEQ TABLET PO STA (08:44)
[2018-02-04 08:51] LABS: RBC MORPHOLOGY (MULTIPLE) 3+ ANISOCYTOSIS (NORMAL)
[2018-02-04 09:50] VITALS: BP 108/54
== END 2018-02-04 10:16 | disposition home or self-care (01) ==
LOC: EDUNIT# → ED 07:49
DX: T62.91XA Toxic effect of unspecified noxious substance eaten as food, accidental (unintentional), initial encounter (principal); A04.5 Campylobacter enteritis; R11.2 Nausea with vomiting, unspecified
CPT/HCPCS: 36415; 80053; 83690; 85025; 87045; 87046; 96361; 96374; 99283; 99284; A9270